=== PATIENT | male | born 1985 | race Two or more races ===

== ENCOUNTER 2019-06-14 13:30 | Outpatient (CLI) | payer MEDICAID ==
[~2019-06-14] VITALS: Ht 167.6 cm; Wt 53.1 kg
[2019-06-14] MEDS ORDERED: OMEPRAZOLE40 M1 ORAL (15:55)
[2019-06-14] MEDS ORDERED: HIV MED (15:55)
[2019-06-14 15:56] VITALS: BP 115/88
--- NOTE | 2019-06-14 19:45 | Consultation ---
DATE OF CONSULTATION: 06/14/2019 CHIEF COMPLAINT: GERD, chest pain. HISTORY OF PRESENT ILLNESS: The patient is a 34-year-old male with past medical history of HIV treatment complaining of severe GERD, taking omeprazole for almost one month without any significant improvement. PAST MEDICAL HISTORY: HIV. PAST SURGICAL HISTORY: [place] teeth removal. MEDICATIONS: Please see medication reconciliation list. FAMILY HISTORY: Noncontributory. SOCIAL HISTORY: The patient drinks about 4 drinks per week. He also smokes. Denies any IV drug abuse. ALLERGIES: No known drug allergies. REVIEW OF SYSTEMS: A 10-point review of systems was performed and positive for abdominal pain and GERD. PHYSICAL EXAMINATION: VITAL SIGNS: Temperature is 99.9, pulse 81, respirations 20, blood pressure is 115/88. HEENT: Normocephalic and atraumatic. Sclerae anicteric. NECK: Supple. No evidence of obvious lymphadenopathy. CARDIOVASCULAR: Regular rate and rhythm. Plus S1 and S2. No obvious murmur. LUNGS: Decreased breath sounds bilaterally based on the supine exam. ABDOMEN: Soft and nontender. No rebound. No guarding. No peritoneal sign. EXTREMITIES: No cyanosis. No clubbing. No edema. ASSESSMENT AND PLAN: This is a 34-year-old male with chronic GERD, not responding to PPI, needs endoscopy. The patient was informed of the risks and benefits of the procedure. All his questions about the procedure was answered. I will send authorization for endoscopy and we will plan to perform it when . Steven Saldana M.D. DR: Edin JOB#: [id number] CC:
== END 2019-06-14 15:30 | disposition home or self-care (01) ==
LOC: PAN 13:30
DX: K21.9 Gastro-esophageal reflux disease without esophagitis (principal); R07.9 Chest pain, unspecified; B20 Human immunodeficiency virus [HIV] disease